=== PATIENT | male | born 1990 | race Caucasian/White ===

== ENCOUNTER → 2019-11-23 07:47 | Outpatient (CLI) | payer OTHER, SELFPAY ==
--- NOTE | 2019-11-23 07:52 | US_ITS ---
STUDY: SCROTUM ULTRASOUND REASON FOR EXAM: Male, 29 years old. TESTICULAR PAIN - RT X 4WEEKS . -- S/P ANTIBIOTICS 2 WKS TECHNIQUE: Ultrasound evaluation of the scrotum was performed with color Doppler and static chaidez-scale imaging. COMPARISON: None. FINDINGS: RIGHT TESTICLE INTRATESTICULAR: There is a normal size of the right testicle. The right testicle measures 5.1 cm x 3.9 cm x 2.9 cm. There is a heterogeneous echotexture. There is evidence of microlithiasis. There is normal arterial and normal venous vascularity. 2 masses are seen within the testicle. The larger solid mass measures 3.3 cm x 2.7 cm x 2.6 cm. EXTRATESTICULAR: The epididymis is normal in size. The epididymis head measures 1.1 cm x 0.9 cm x 1.0 cm. There is normal vascularity of the epididymis. There is no demonstrated epididymal cystic structure. There is a small hydrocele. There is no demonstrated varicocele. There is no demonstrated extratesticular mass or cyst. LEFT TESTICLE INTRATESTICULAR: There is a normal size of the left testicle. The left testicle measures 4.6 cm x 3 cm x 2.0 cm. There is a heterogeneous echotexture. Microlithiasis is seen. There is normal arterial and normal venous vascularity. There is no demonstrated left testicular mass or cyst. EXTRATESTICULAR: The epididymis is normal in size. The epididymis head measures 0.9 cm x 0.6 cm x 0.8 cm. There is normal vascularity of the epididymis. There is no demonstrated epididymal cystic structure. There is a small hydrocele. There is no demonstrated varicocele. There is no demonstrated extratesticular mass or cyst. US/Testicular with Arterial Flow IMPRESSION: 2 solid masses are seen in the right testicle. The largest measures 3.3 cm x 2.7 cm x 2.6 cm. Neoplastic process should be ruled out. Small bilateral hydroceles. Electronically Signed: Brady Shahid, at 9:12 EDT , Service support ,
== END ==
PROVIDERS: PCP Family Medicine; Referring Provider Family Medicine; Visit Provider Family Medicine
DX: N50.811 Right testicular pain (principal)
CPT/HCPCS: 76870; 93976

== ENCOUNTER → 2019-11-27 15:53 | Outpatient (CLI) | payer OTHER, SELFPAY ==
[2019-11-27 16:10] LABS: Hematocrit 49.1 % (40-54); Hemoglobin 16.5 g/dL (13.0-16.5); Mean Corp Hgb Conc 33.6 g/dL (32-36); Mean Corpuscular Hgb 29.5 pg (27.0-32.0); Mean Corpuscular Volume 87.8 fL (80-94); Mean Platelet Vol. 9.7 fl (6.2-12.0); Platelet Count 264 K/mm3 (150-450); RBC Distribution Width CV 11.6 % (11.6-14.6); RBC Distribution Width SD 37.1 fl (35.1-43.9); Red Blood Count 5.59 M/mm3 (4.6-6.2); White Blood Count 8.3 K/mm3 (4.4-11.0)
[2019-11-27 17:05] LABS: Anion Gap 4 (5-15); BUN 16 mg/dL (7-18); BUN/Creat Ratio 11.7 RATIO (10-20); Calcium,Total 8.9 mg/dL (8.5-10.1); Chloride 103 mmol/L (98-107); Creatinine, Serum 1.37 mg/dL (0.70-1.30); EST Glomerular Filtration Rate 65 mL/min (>60); Est Glom Filt Rate - Afr Amer 79 mL/min (>60); Glucose 93 mg/dL (74-106); LDH 296 U/L (87-241); Sodium Level 139 mmol/L (136-145)
[2019-11-29 06:10] LABS: HCG BETA-SUBUNIT QUANT. < 1 mIU/mL (0-3)
[2019-11-29 06:11] LABS: AFP, Tumor Marker 4.5 ng/mL (0.0-8.3)
== END ==
PROVIDERS: PCP Family Medicine; Referring Provider Urology; Visit Provider Urology
DX: N50.89 Other specified disorders of the male genital organs (principal)
CPT/HCPCS: 36415; 80048; 82105; 83615; 84702; 85027

== ENCOUNTER 2019-11-29 12:02 | Day surgery (SDC) | payer OTHER, SELFPAY ==
[2019-11-29] VITALS (8 sets, daily range): BP systolic 136–144; BP diastolic 67–82; PULSE 55–74; RESP 16–17; TEMP 36.3–36.8; O2SAT 98–100; BMI 32.5
[2019-11-29] MEDS: Lactated Ringers 1,000 ML 100 ML IV (12:50)
--- NOTE | 2019-11-29 14:35 | TEST_PTH ---
PATIENT: ELICIA BELL [place] [facility] [place][id number] AGE/SX: 29/M ROOM: RE11/29/[address]: Dr. Ruy Ye MD : 1990 BED: DIS: 11/29/2019 SPEC #: [id number] RECD: 11/30/19 07:33 STATUS: SEAN YIPSofie #: [id number] DONNA: 11/29/19 14:[address]: Ruy Ye DEPT: SURGICAL PATHOLOGY RECD BY: Jose David Hendrickson ENTERED: 11/30/19 09:44 SP TYPE: TESTICLE OTHR DR: Dr. Dimitri Warner MD Tissues: Testis, NOS Procedures: Surgery Specimen Level HEADER OPERATION: Radical orchiectomy PRE-OP DIAGNOSIS: Right testicular mass TISSUE SUBMITTED: Right testicle MICROSCOPIC DIAGNOSIS Right testicle, radical orchiectomy: Seminoma. See cancer summary in the comment section. SJ:lory 12/04/19 COMMENT TESTIS - RADICAL ORCHIECTOMY CANCER SUMMARY: Specimen laterality - right Tumor focality - multifocal (two foci) Tumor Size ( larger tumor) - 4 x 3 x 3 cm Greatest dimension of additional tumor nodule - 0.4 cm in greatest dimension. Histologic type - seminoma Tumor extension - tumor limited to testes. Spermatic cord margin - uninvolved by tumor. Other margins - uninvolved by tumor. Lymphvascular invasion - not identified Regional lymph nodes - no lymph nodes submitted or found. Pre-orchiectomy serum tumor markers: Lactate dehydrogenase (LDH) elevation - 296 U/L (normal 87-241). 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 - focal thickening of seminiferous tubules capsule and focal atrophy. PATHOLOGIC STAGE: pT1(m) pNx pMx The above summary is in compliance with [employer] (CAP) Cancer Protocols Checklist and [place] Joint Committee on Cancer (AJCC), Staging Manual, 8th Ed. Case has been reviewed in consultation with Dr. Richard who concurs with the above diagnosis. IDC:AM MICROSCOPIC DESCRIPTION Slides are reviewed. GROSS DESCRIPTION Received in fixative is one container labeled with the patient's name and designated right testicle. The specimen consists of a radical orchiectomy specimen weighing 52 gm. The spermatic cord measures 3?cm in length and 1 cm in diameter. The epididymis measures 3.5 x 1 x 0.5 cm. The testes measure 5.5?x 4 x 3.5 cm. The external surface is inked black. Serial sections of teste reveal a lobulated baltazar-pink mass with central area of softening measuring 4 x 3 x 3 cm. The tumor mass is occupying almost 8090% of the testicle. Tunica vaginalis is not by the tumor. More dictation will follow after overnight fixation. Sweater Designer sections are submitted as follows: 1 - resection margin, spermatic cord and also the adjacent piece of adipose tissue, 2 - more sections of spermatic cord. / SJ:lory 11/30/19 More sections are submitted as follows: 3 - epididymis and tunica vaginalis, 4 & 11 - tumor, 12?-?uninvolved testis with adjacent epididymis. / SJ:lory 12/01/19 TC:0 CPT: 49379
--- NOTE | 2019-11-29 15:01 | PCM.HP.STD ---
History of Present Illness Date of Admission: 11/29/19 Chief Complaint: Right testicular mass The patient is a 29 year old male was found to have a solid right testicular mass on ultrasound, preoperative testicular markers, LDH slightly elevated, alpha-fetoprotein is negative normal, beta-hCG is normal. Because of the solid mass that appears to be a malignancy renal proceed with a right radical orchiectomy. Past Medical History Allergies amoxicillin Allergy (Verified 11/29/19 12:38) Swelling Home Medications: Ambulatory Orders Medication Instructions Recorded Multivitamin with Minerals 1 ea PO DAILY 11/28/19 [Multiple Vitamin] Oxycodone HCl/Acetaminophen 1 tablet PO Q4H PRN PRN 5 Days #20 11/29/19 [Percocet 5/325] tablet Surgical History: no surgical history Smoking Status: Never smoker Tobacco Use: Non-smoker Review of Systems Constitutional: Denies: Chills, Fever, Weight Change HEENT: Denies: Head Aches, Sinus Congestion, Sinus Drainage Cardiovascular: Denies: Chest Pain, Palpitations Respiratory: Denies: Cough, Shortness of breath at rest, Sputum production Gastrointestinal: Denies: Abdominal Pain, Nausea, Vomiting Genitourinary: Denies: Dysuria Musculoskeletal: Denies: Joint Pain, Joint Tenderness Skin: Denies: Rash, Wounds Neurological: Denies: Numbness, Tingling, Focal weakness Psychiatric: Denies: Anxiety, Depression, Homicidal Ideations, Suicidal Ideations Hematologic/ Lymphatic: Denies: Easy Bruising, Easy Bleeding VTE Information - Inpt Only VTE Present on Admission: No - Physical Exam Vitals/I&O's: Vital Signs Temp Pulse Resp BP Pulse Ox 98.3 F 55 L 16 142/67 H 98 11/29/19 12:40 11/29/19 12:40 11/29/19 12:40 11/29/19 12:40 11/29/19 12:40 Oxygen Delivery Method Room Air Weight: 108.8 kg Body Mass Index (BMI) 32.5 General: Alert, Oriented x3, Cooperative HEENT: Atraumatic, PERRLA, EOMI, Normocephalic Neck: Supple, No JVD, Negative Carotid Bruits Lungs: Clear to auscultation, Normal air movement Cardiovascular: Regular rate, No murmurs Abdomen: Bowel Sounds Present, Soft, Non Tender Extremities: No edema, Capillary Refill Less than 3 Seconds Skin: No rashes, No breakdown Musculoskeletal: No Tenderness to Palpation of Joints or Extremities Neurological: Cranial nerves II-XII grossly intact Psych/Mental Status: Normal Affect, Appropriate Comment: Solid mass in right testicle palpable Current Medications Cefazolin Sodium 2 gm/ Sodium (Chloride) 110 mls @ 150 mls/hr IV PREOP ONE Stop: 11/29/19 15:18 Lactated Ringer's () 1,000 mls @ 100 mls/hr IV .Q10H CHRIS Last Admin: 11/29/19 12:50 Dose: 100 mls/hr Documented by: Assessment/Plan Plan to proceed with a right radical orchiectomy preoperative tumor markers alpha-fetoprotein, beta-hCG were normal, LDH slightly elevated.
--- NOTE | 2019-11-29 15:04 | PCM.DC.URO ---
Discharge Diet: Light diet - advance as tolerated Discharge Activity: May Not Drive, May not drive while taking narcotic pain medications. Call your doctor if your incision/area has: Continuous Slow Oozing, Sudden Increased Bleeding, Increased Pain/ Swelling, Increased Redness, Foul Smelling Discharge, Swelling at the incision site Call your doctor if you observe: Fever of 101 or Higher Allergies/Adverse Reactions: Allergies amoxicillin Allergy (Verified 11/29/19 12:38) Swelling Medications to take at Discharge Multivitamin with Minerals [Multiple Vitamin] 1 ea PO DAILY 11/28/19 Oxycodone HCl/Acetaminophen [Percocet 5/325] 1 tablet PO Q4H PRN PRN 5 Days #20 tablet 11/29/19 The following prescriptions were given: Oxycodone HCl/Acetaminophen [Percocet 5/325] 1 tablet PO Q4H PRN PRN 5 Days #20 tablet PRN Reason: Pain Transmission Status: Sent to [facility] Primary Care Physician: Fermin Warner MD [Primary Care Provider] - Test Results: Test results from this visit will be discussed in further detail at your follow-up appointment, if applicable. Please Follow Up With: Ruy Ye MD When: please call to make an appointment.
[2019-11-29] MEDS: Cefazolin 2 GM in 0.9% Normal Saline 100 ML IV (15:10)
--- NOTE | 2019-11-29 15:58 | PCM.OPRPT ---
Report of Operation Date of Procedure: 11/29/19 Pre-Operative Diagnosis: Right testicular mass Post-Operative Diagnosis: Same Surgery/Procedure Performed:: Right radical orchiectomy inguinal approach Description of Surgical Findings:: 29-year-old male was taken back to the operating room after smooth induction of anesthesia he was placed supine on the table the right zenia-was scrotum and right lower abdomen was shaved prepped and draped in usual sterile fashion. On palpation he could palpate a hard mass in the right testicle we then made an incision over the right inguinal canal 4 cm in size dissected down to the skin superficial fat Nani's fascia and identified the external oblique fascia opened this up and then identified the spermatic cord, the cord was then grabbed put a high ligation of the cord with a wrap I then manipulated the testicle up to the inguinal canal and about to the incision I dissected the testicle off the scrotum and release the gubernaculum off the testicle. At this point then a clamp was placed on the spermatic cord we cut off the testicle and the cord as a specimen then suture ligated the cord with a stitch using 0 silk and 0 Vicryl and also running the end of the spermatic cord with a continuous stitch for hemostasis I then placed the final freehand stitch on the cord and then released the cord back into the inguinal canal to close the inguinal canal and then we closed Nani's fascia and then we closed the skin with subcuticular stitches. Bandages and dressings were placed anesthetic was reversed he was taken back to the PACU good condition plan to see the patient back in 1 week for checkup and review the pathology report. Preoperatively the LDH is only slightly elevated, the beta-hCG was normal and alpha-fetoprotein tumor markers were normal. Type of Anesthesia:: General Drains: none Estimated Blood Loss (mL): none - Admit VTE Documentation VTE Present on Admission: No VTE Mechan Device Prophylaxis: SCD's
== END 2019-11-29 17:35 | disposition home or self-care (01) ==
LOC: SDC 12:02 → AC 12:03
PROVIDERS: PCP Family Medicine; Referring Provider Urology; Visit Provider Urology
PROC: (CPT 54530; principal; 2019-11-29 14:20)
DX: C62.91 Malignant neoplasm of right testis, unspecified whether descended or undescended (principal)
CPT/HCPCS: 54530; 88309; J7120; J2405

== ENCOUNTER → 2019-12-06 16:38 | Outpatient (CLI) | payer OTHER, SELFPAY ==
[2019-11-29 12:40] VITALS: BMI 32.5
--- NOTE | 2019-12-06 16:45 | CT_ITS ---
STUDY: CT ABDOMEN AND PELVIS WITH CONTRAST REASON FOR EXAM: Male, 29 years old. Bleed diagnosed testicular neoplasm. Tracheotomy, 4 days ago. RADIATION DOSAGE (If Supplied By Facility): CTDIvol = ( 14.01 ) mGy, DLP = ( 1033.37 ) mGycm TECHNIQUE: Transaxial images were obtained from the dome of the diaphragm to the symphysis pubis with oral contrast. 100ML ISOVUE 300 was administered. Sagittal and coronal images were reconstructed. Individualized dose optimization techniques were used for this CT. COMPARISON: None. FINDINGS: The visualized lung bases are unremarkable. The visualized portions of the heart are within normal limits. Normal liver. Normal gallbladder and extrahepatic biliary system. Normal spleen. Normal pancreas. Normal bilateral adrenal glands. Normal right kidney. Normal left kidney. Normal bilateral ureters. Normal visualized stomach. Normal small intestine. Normal colon. The appendix is visualized and appears normal. Normal abdominal aorta. Normal inferior vena cava. There are subcentimeter aortocaval and periaortic lymph nodes in the region of the renal gordy. Largest periaortic node measures 2.8 x 0.4 x 2.8 cm. This is best seen on image 54 of series 102 and on image 83 of series 602. Urinary bladder is incompletely distended but grossly normal. Normal prostate and seminal vesicles. There is no pelvic lymphadenopathy. No free air or free fluid is seen within the peritoneal cavity. Marked stranding in the right inguinal area consistent with prior orchiectomy. The right testicle is not seen within the scrotum. The abdominal wall is otherwise unremarkable. Normal osseous structures. CT/Abdomen/Pelvis WITH Contrast IMPRESSION: 1. Status post right orchiectomy. 2. Minimal subcentimeter nonspecific retroperitoneal lymphadenopathy. 3. No obvious metastatic disease. Electronically Signed: Keith Arredondo DO at 19:17 EDT Tel [phone], Service support ,
--- NOTE | 2019-12-06 16:45 | RAD_ITS ---
STUDY: X-RAY CHEST REASON FOR EXAM: Male, 29 years old. Testicular neoplasm. TECHNIQUE: PA and lateral views of the chest. COMPARISON: None. FINDINGS: The lungs are clear and expanded. There is no demonstrated pleural abnormality. Normal size heart. Normal mediastinum and gordy. Normal visualized pulmonary arteries. Normal visualized aortic arch and descending thoracic aorta. Normal visualized thoracic spine. Normal visualized ribs, clavicles, and shoulders. There is no demonstrated abnormality of the visualized soft tissue structures of the upper abdomen. RAD/Chest PA and Lateral IMPRESSION: No acute cardiopulmonary disease. Electronically Signed: Keith Arredondo DO at 18:02 EDT Tel [phone], Service support ,
== END ==
PROVIDERS: PCP Family Medicine; Referring Provider Urology; Visit Provider Urology
DX: C62.10 Malignant neoplasm of unspecified descended testis (principal)
CPT/HCPCS: 71046; 74177; Q9967

== ENCOUNTER → 2019-12-12 17:16 | Outpatient (CLI) | payer OTHER, SELFPAY ==
[2019-11-29 12:40] VITALS: BMI 32.5
[2019-12-12 18:31] LABS: LDH 262 U/L (87-241)
[2019-12-14 09:14] LABS: AFP, Tumor Marker 3.9 ng/mL (0.0-8.3); HCG BETA-SUBUNIT QUANT. < 1 mIU/mL (0-3)
== END ==
PROVIDERS: PCP Family Medicine; Referring Provider Urology; Visit Provider Urology
DX: C62.90 Malignant neoplasm of unspecified testis, unspecified whether descended or undescended (principal)
CPT/HCPCS: 36415; 82105; 83615; 84702

== ENCOUNTER 2021-05-13 18:04 | Outpatient (CLI) | payer OTHER, SELFPAY | END 2021-05-13 23:59 | disposition short-term general hospital (02) | PROVIDERS: PCP Family Medicine; Visit Provider Family Medicine | DX: N39.0 Urinary tract infection, site not specified (principal) | CPT/HCPCS: 87077; 87086; 87088; 87186 ==

== ENCOUNTER → 2021-11-14 | Outpatient (CLI) | payer OTHER, SELFPAY ==
--- NOTE | 2021-11-14 09:20 | RAD_ITS ---
INDICATION: COVID EXAMINATION/TECHNIQUE: X-RAY - XR Chest 2 Views COMPARISON: 12/06/2019. FINDINGS: LINES/DEVICES: None. LUNGS: No consolidation, edema or effusion. No pneumothorax. MEDIASTINUM AND CARDIOVASCULAR STRUCTURES: Cardiac silhouette not enlarged. Central airways and mediastinal contour are unremarkable. BONES AND SOFT TISSUES: Unremarkable. RAD/Chest PA and Lateral IMPRESSION: No radiographic evidence of acute cardiopulmonary disease. Electronically Signed: Pb Bañuelos MD at 11:20 EDT ,
== END | disposition home or self-care (01) ==
LOC: MTRAD 09:15
PROVIDERS: PCP Family Medicine; Referring Provider Family Medicine; Visit Provider Family Medicine
DX: U07.1 COVID-19 (principal)
CPT/HCPCS: 71046

== ENCOUNTER → 2022-05-15 | Outpatient (CLI) | payer OTHER, SELFPAY ==
[2022-05-15 11:00] LABS: ALB/GLOB Ratio 1.1 RATIO (0.9-2.4); AST(SGOT) 28 U/L (15-37); Alanine Aminotransfer ALT/SGPT 28 U/L (16-61); Albumin, Serum 3.9 g/dL (3.2-5.0); Alkaline Phosphatase 86 U/L (45-117); Anion Gap 9 (5-15); BUN 16 mg/dL (7-18); BUN/Creat Ratio 14.8 RATIO (10-20); Chloride 105 mmol/L (98-107); Cholesterol 181 mg/dL (200); Creatinine, Serum 1.08 mg/dL (0.70-1.30); EST Glomerular Filtration Rate 85 mL/min (>60); Est Glom Filt Rate - Afr Amer 102 mL/min (>60); Globulin 3.4 g/dL (2.2-4.2); Glucose 87 mg/dL (74-106); High Density Lipoprotein 41 mg/dL; Potassium 3.8 mmol/L (3.5-5.1); Protein, Total 7.3 g/dL (6.4-8.2); Sodium Level 142 mmol/L (136-145); Thyroid Stim Hormone (TSH) 0.88 uIU/mL (0.358-3.74); Triglycerides 209 mg/dL; Very Low Density Lipoprotein 42 mg/dL (5-40)
== END | disposition home or self-care (01) ==
LOC: MFPLAB 08:10
PROVIDERS: PCP Family Medicine; Referring Provider Family Medicine; Visit Provider Family Medicine
DX: E78.1 Pure hyperglyceridemia (principal)
CPT/HCPCS: 36415; 80053; 80061; 84443

== ENCOUNTER 2023-10-31 10:59 | Emergency (ER) | payer OTHER, SELFPAY ==
[2023-10-31 10:59] VITALS: BP 127/68; PULSE 93; RESP 20; TEMP 36.7; O2SAT 100; BMI 32.1
--- NOTE | 2023-10-31 11:11 | EKG12_ITS ---
Test Reason : SYNCOPE Blood Pressure : / mmHG Vent. Rate : 080 BPM Atrial Rate : 080 BPM P-R Int : 162 ms QRS Dur : 088 ms QT Int : 374 ms P-R-T Axes : 062 -19 044 degrees QTc Int : 431 ms Normal sinus rhythm Normal ECG Confirmed by COLLEEN WALLACE, NADJA ([id number]), editor map JOHN POLK ([id number]) on 11/02/2023 8:28:05 AM Referred By: RUDY/DA Confirmed By:NADJA MACISA MD
--- NOTE | 2023-10-31 11:12 | EX.ED.DYSGE1 ---
HPI <EVE Tanner - Last Filed: 10/31/23 13:37> History of Present Illness Chief Complaint: Syncope Narrative Narrative: Patient presenting today due to a syncopal episode that occurred this morning. He reports that since Wednesday he has been sick with cold-like symptoms such as nasal congestion, cough, body aches, and fatigue. This morning he began feeling feverish and chilled, he went to the kitchen table to sit down and felt diaphoretic and began having tunnel vision, his observed him put his head back and pass out for several seconds, no seizure-like activity was observed. He denies any history of syncope. He denies any chest pain or shortness of breath prior to the episode. He reports that he is intermittently fasting and has not had anything to eat since yesterday at dinnertime, he had a small amount of water this morning. He denies any family history of sudden cardiac . He denies having any chronic health conditions. [facility] <EVE Tanner - Last Filed: 10/31/23 13:37> [facility] Home Medications ?Medication ?Instructions ?Recorded ?Last Taken ?Type multivitamin with minerals 1 ea PO DAILY 11/28/19 Unknown History Allergy/AdvReac Type Severity Reaction Status Date / Time amoxicillin Allergy Swelling Verified 10/31/23 11:00 Social History Smoking Status: Never smoker ROS <EVE Tanner - Last Filed: 10/31/23 13:37> ROS ED Constitutional Constitutional ED: Reports chills, fever(s), subjective and sweats Cardiovascular Cardiovascular: Denies chest pain or palpitations Respiratory/Chest Respiratory/Chest: Reports cough; Denies dyspnea Gastrointestinal Gastrointestinal: Denies abdominal pain, nausea or vomiting Musculoskeletal Musculoskeletal: Reports other Details: Body aches Integumentary Denies rash Neurologic Neurologic: Denies headache(s) EXAM <EVE Tanner - Last Filed: 10/31/23 13:37> Physical Exam Const Vital Signs: 10/31/23 10:59 10/31/23 11:07 10/31/23 12:58 Temperature 98.1 F 98.9 F Temperature Source Temporal Pulse Rate 93 87 Respiratory Rate 20 H 20 H Respiratory Effort Normal Non-Labored Respiratory Pattern Normal Blood Pressure 127/68 H 121/72 H Blood Pressure Mean 87 88 Pulse Ox 100 97 Oxygen Delivery Method Room Air Positive well nourished, well developed and no apparent distress General Appearance ED: well developed HEENT Reports normocephalic, head/scalp atraumatic and TM's clear Tympanic Membrane ED: Yes TM's clear bilateral Mouth ED: Yes moist mucous membranes normal Throat: posterior oropharynx normal, tonsils normal and uvula midline Eyes PERRL and EOMs intact bilaterally Neck full ROM and supple Chest Wall inspection of chest normal Resp normal respiratory effort and clear to auscultation bilaterally Cardio regular rate and regular rhythm GI soft to palpation, non-tender, non-distended and no masses Back/Spine normal ROM and normal to inspection Extremity normal to inspection and full ROM Neuro oriented x3, CN's II-XII intact bilaterally, moves all extremities, no focal motor deficits and no sensory deficits noted Sensorium / Orientation: awake and alert Psych mental status grossly normal and thought process normal Skin no rashes or lesions noted and no wounds <Dr. Tejinder Castillo DO - Last Filed: 10/31/23 16:26> Physical Exam Const Vital Signs: 10/31/23 10:59 10/31/23 11:07 10/31/23 12:58 Temperature 98.1 F 98.9 F Temperature Source Temporal Pulse Rate 93 87 Respiratory Rate 20 H 20 H Respiratory Effort Normal Non-Labored Respiratory Pattern Normal Blood Pressure 127/68 H 121/72 H Blood Pressure Mean 87 88 Pulse Ox 100 97 Oxygen Delivery Method Room Air [facility] <EVE Tanner - Last Filed: 10/31/23 13:37> [facility] Narrative Medical decision making narrative: Patient presenting today due to a syncopal episode that occurred this morning. He is well-appearing and in no acute distress, he has what sounds like a viral illness since Wednesday with nasal congestion, cough, body aches, and subjective fevers. He is PERC negative, low suspicion for PE. Although his syncopal episode likely sounds vasovagal in nature, labs will be obtained to rule out leukocytosis, anemia, electrolyte abnormality, BOSTON, and ACS. EKG obtained, this is normal sinus rhythm. Chest x-ray will be obtained to rule out infiltrate and other cardiopulmonary abnormality. He will be given IV fluids as he has had no food today and very little to drink. Labs show slight leukocytosis at 12.4, otherwise labs are unremarkable. Troponin is 35. Chest x-ray shows no acute findings. COVID, influenza, and RSV were obtained, this is negative. On reexamination patient is feeling well, supportive care measures were discussed, encouraged that he follow-up with his PCP. Return instructions were given. Patient discharged home in stable condition. Lab Data Attestation: I reviewed the patient's lab results. Labs: Laboratory Results - last 24 hr 10/31/23 11:30 WBC 12.4 H RBC 4.92 Hgb 14.9 Hct 42.7 MCV 86.8 MCH 30.3 MCHC 34.9 RDW Std Deviation 37.2 RDW Coeff of Shama 11.7 Plt Count 204 MPV 9.8 Immature Gran % (Auto) 0.400 Neut % (Auto) 85.5 H Lymph % (Auto) 5.1 L Island % (Auto) 8.1 Eos % (Auto) 0.5 Baso % (Auto) 0.4 Absolute Neuts (auto) 10.6 H Absolute Lymphs (auto) 0.63 L Nucleated RBC % 0 Sodium 136 Potassium 4.0 Chloride 103 Carbon Dioxide 28.0 Anion Gap 5 BUN 10 Creatinine 1.16 Estim Creat Clear Calc 112.38 Est GFR (MDRD) Af Amer 93 Est GFR (MDRD) Non-Af 77 BUN/Creatinine Ratio 8.6 L Glucose 126 H Calcium 9.1 Troponin I High Sens 35 Radiography X-Ray: Read by ED Physician Diagnostic Testing: Clinical Impression(s) from Imaging Studies Chest X-Ray 10/31/23 11:50 IMPRESSION: Normal x-ray examination of the chest. Electronically Signed: Ayush Mcclellan MD at 12:12 EDT , EKG Initial EKG: Comments: 80 bpm, normal sinus rhythm, no ST elevation, reviewed and interpreted by attending ED physician <Dr. Tejinder Castillo, DO - Last Filed: 10/31/23 16:26> [facility] Narrative Medical decision making narrative: Patient presenting today due to a syncopal episode that occurred this morning. He is well-appearing and in no acute distress, he has what sounds like a viral illness since Wednesday with nasal congestion, cough, body aches, and subjective fevers. He is PERC negative, low suspicion for PE. Although his syncopal episode likely sounds vasovagal in nature, labs will be obtained to rule out leukocytosis, anemia, electrolyte abnormality, BOSTON, and ACS. EKG obtained, this is normal sinus rhythm. Chest x-ray will be obtained to rule out infiltrate and other cardiopulmonary abnormality. He will be given IV fluids as he has had no food today and very little to drink. Labs show slight leukocytosis at 12.4, otherwise labs are unremarkable. Troponin is 35. Chest x-ray shows no acute findings. COVID, influenza, and RSV were obtained, this is negative. On reexamination patient is feeling well, supportive care measures were discussed, encouraged that he follow-up with his PCP. Return instructions were given. Patient discharged home in stable condition. Addendum Patient was seen and examined with physician email marketing assistant Jessica All components of the history and physical confirmed and agreed. History of present illness and physical exam: Patient is a 33-year-old male with no known significant past medical history who presented to the emergency department with a chief complaint of passing out. Patient states that He has been sick since Wednesday with cold-like symptoms cough, congestion, body aches and not feeling well. He states that this morning he attempted to sleep in and noted that he got up feeling not his normal self still. He states that he was sitting at the table and had a episode where he passed out. His witnessed this and states that he did not have any seizure-like activity no shaking noted. Patient denies any history of blood clots or any recent travel history. He states that he has not had much of an appetite and has not had much to drink. Patient denies any family history of early cardiac . Review of systems Constitutional: Patient complains of chills, passing out related as noted above and not feeling well Eyes: Denies change with double vision blurry vision Cardiovascular: Denies chest pain or palpitations Respiratory: Denies coughing wheezing shortness of breath Abdomen: Denies abdominal pain nausea vomit diarrhea Neurological: Denies numbness, tingling complains of generalized weakness as noted above Skin: Denies rashes or lesions Physical exam general: Patient lying in bed rest comfortably did not appear to be in acute distress Head: Atraumatic, normocephalic Eyes: Pupils equal round reactive to light bilaterally, extraocular muscles intact bilateral, no conjunctival injection noted Neck: Soft, supple, trachea midline Cardiovascular: Regular rate and rhythm no murmurs gallops rubs noted Respiratory: Clear to auscultation bilaterally no rales rhonchi or wheezes noted Abdomen: No tenderness to palpation extremities: +5/5 strength noted in the bilateral upper and lower extremities, no pedal edema on exam Neurological: Patient following commands knew that he was at [facility] the year is 2023 Skin: Warm, dry contact MDM: Patient CBC was significant for leukocytosis 12,000, hemoglobin stable 14.9, platelet count was noted to be normal at 204. Patient sodium was noted to be normal 136, potassium normal at 4, creatinine normal at 1.16. Patient's troponin was noted be 35, patient's chest x-ray was reviewed as normal chest x-ray. Patient COVID flu and RSV were negative. On reevaluation the patient he is feeling improved and he would like to go home at this point time. He is encouraged that he probably likely has another virus going on and to continue to orally hydrate as well as use ibuprofen/Tylenol for any fevers. He is encouraged to follow-up with his primary care physician in the outpatient setting. He is PERC negative. He is agreeable with this episode all question concerns answered he is discharged home in stable condition. Plan: -Patient encouraged to continue to orally hydrate and eat starting with a bland diet and advance as tolerated -He was encouraged to use ibuprofen Tylenol for fever control -He is encouraged to return with worsening symptoms or other concerns -Patient was discharged home in stable condition Final impression: Upper respiratory infection second viral etiology Disposition: Patient will be discharged home in stable condition Supervising attending attestation: Tejinder Castillo D.O. Lab Data Labs: Laboratory Results - last 24 hr 10/31/23 11:30 WBC 12.4 H RBC 4.92 Hgb 14.9 Hct 42.7 MCV 86.8 MCH 30.3 MCHC 34.9 RDW Std Deviation 37.2 RDW Coeff of Shama 11.7 Plt Count 204 MPV 9.8 Immature Gran % (Auto) 0.400 Neut % (Auto) 85.5 H Lymph % (Auto) 5.1 L Island % (Auto) 8.1 Eos % (Auto) 0.5 Baso % (Auto) 0.4 Absolute Neuts (auto) 10.6 H Absolute Lymphs (auto) 0.63 L Nucleated RBC % 0 Sodium 136 Potassium 4.0 Chloride 103 Carbon Dioxide 28.0 Anion Gap 5 BUN 10 Creatinine 1.16 Estim Creat Clear Calc 112.38 Est GFR (MDRD) Af Amer 93 Est GFR (MDRD) Non-Af 77 BUN/Creatinine Ratio 8.6 L Glucose 126 H Calcium 9.1 Troponin I High Sens 35 Radiography Diagnostic Testing: Clinical Impression(s) from Imaging Studies Chest X-Ray 10/31/23 11:50 IMPRESSION: Normal x-ray examination of the chest. Electronically Signed: Ayush Mcclellan MD at 12:12 EDT , Discharge Plan Triage Chief Complaint: Syncope ED Midlevel Provider: Leisa Patel ED Provider: Tejinder Castillo Dx/Rx/DC Orders Clinical Impression: URI (upper respiratory infection), Syncope Instructions: ED Fainting, Vagal Reaction Prescriptions: No Action multivitamin with minerals 1 EACH tablet 1 ea PO DAILY Primary Care Provider: Dimitri Warner Referrals: Dimitri Warner MD [Primary Care Provider] - 5-7 Days Activity Restrictions/Additional Instructions: Follow-up with your PCP and return for any worsening of your symptoms. Print Language: Irish Disposition Disposition: Home, Self Care Discharge Date/Time: 10/31/23 13:00
[2023-10-31 11:41] LABS: Absolute Lymphocyte Count 0.63 X10^3/uL (0.83-4.51); Absolute Neutrophil Count 10.6 X10^3/uL (2.0-7.7); Basophil# 0.05 X10^3/uL; Basophil% 0.4 % (0-1); Eosinophil# 0.06 X10^3/uL; Eosinophils% 0.5 % (0-5); Hematocrit 42.7 % (40-54); Hemoglobin 14.9 g/dL (13.0-16.5); Lymphocyte # 0.63 X10^3/ul (0.83-4.51); Lymphocyte % 5.1 % (19-41); Mean Corp Hgb Conc 34.9 g/dL (32-36); Mean Corpuscular Hgb 30.3 pg (27.0-32.0); Mean Corpuscular Volume 86.8 fL (80-94); Mean Platelet Vol. 9.8 fl (6.2-12.0); Monocyte% 8.1 % (0-10); NRBC Flagged by Analyzer 0 % (0-5); Neutrophil # 10.56 X10^3/uL (2.7-7.7); Neutrophil % 85.5 % (47-70); Platelet Count 204 K/mm3 (150-450); RBC Distribution Width CV 11.7 % (11.6-14.6); RBC Distribution Width SD 37.2 fl (35.1-43.9); Red Blood Count 4.92 M/mm3 (4.6-6.2); White Blood Count 12.4 K/mm3 (4.4-11.0)
[2023-10-31] MEDS: 0.9% Normal Saline (1000mL) 1,000 ML 999 ML IV (11:41)
--- NOTE | 2023-10-31 11:50 | RAD_ITS ---
STUDY: X-RAY CHEST REASON FOR EXAM: Male, 33 years old. syncope TECHNIQUE: PA and lateral views of the chest. COMPARISON: 11/14/2021 FINDINGS: EKG leads overlie the chest The lungs are clear and expanded. There is no demonstrated pleural abnormality. Normal size heart. Normal mediastinum and gordy. Normal visualized pulmonary arteries. Normal visualized aortic arch and descending thoracic aorta. Normal visualized thoracic spine. Normal visualized ribs, clavicles, and shoulders. There is no demonstrated abnormality of the visualized soft tissue structures of the upper abdomen. RAD/Chest PA and Lateral IMPRESSION: Normal x-ray examination of the chest. Electronically Signed: Ayush Mcclellan MD at 12:12 EDT ,
[2023-10-31 11:58] LABS: Anion Gap 5 (5-15); BUN 10 mg/dL (7-18); BUN/Creat Ratio 8.6 RATIO (10-20); Calcium,Total 9.1 mg/dL (8.5-10.1); Chloride 103 mmol/L (98-107); Creatinine, Serum 1.16 mg/dL (0.70-1.30); EST Glomerular Filtration Rate 77 mL/min (>60); Est Glom Filt Rate - Afr Amer 93 mL/min (>60); Estimated Creatinine Clearance 112.38 ml/min; Glucose 126 mg/dL (74-106); Sodium Level 136 mmol/L (136-145); Troponin-I HS 35 pg/mL (3.0-78.0)
[2023-10-31 12:58] VITALS: BP 121/72; PULSE 87; RESP 20; TEMP 37.2; O2SAT 97
== END 2023-10-31 13:00 | disposition home or self-care (01) ==
PROVIDERS: Physician Assistant; Emergency Provider Emergency Medicine; PCP Family Medicine; Visit Provider Emergency Medicine
DX: J06.9 Acute upper respiratory infection, unspecified (principal); R55 Syncope and collapse
CPT/HCPCS: 71046; 80048; 84484; 85025; 87631; 93005; 96360; 99284; J7030; A4216